=== PATIENT | male | born 1970 | race Caucasian/White ===

== ENCOUNTER 2019-06-23 23:44 | Emergency (ER) | payer OTHER ==
[~2019-06-23] VITALS: Ht 187.9 cm; Wt 81.6 kg
== END 2019-06-24 00:40 | disposition home or self-care (01) ==
LOC: ED 23:44
DX: F19.10 Other psychoactive substance abuse, uncomplicated (principal)

== ENCOUNTER 2019-06-24 11:46 | Inpatient (IN) | payer OTHER ==
[~2019-06-24] VITALS: Ht 187.9 cm; Wt 79.1 kg
[2019-06-24 13:30] VITALS: BP 124/77
[2019-06-24 13:31] LABS: BASO % 0.7 % (0.0-1.0); EOS # 0.2 10*3/uL (0.0-0.4); EOS % 3.3 % (1.0-4.0); HEMATOCRIT 37.4 % (42.0-52.0); HEMOGLOBIN 12.4 g/dl (14.0-18.0); LYMPH # 1.9 10*3/uL (1.3-4.4); LYMPH % 32.3 % (27.0-41.0); MEAN CELL VOLUME 89.7 fl (80.0-94.0); MEAN CORPUSCULAR HGB 29.7 pg (27.0-31.0); MEAN CORPUSCULAR HGB CONC 33.2 g/dl (33.0-37.0); MONO # 0.4 10*3/uL (0.1-1.0); MONO % 7.5 % (3.0-9.0); NEUT # 3.2 10*3/uL (2.3-7.9); PLATELET COUNT AUTOMATED 179 10*3/uL (130-400); RED BLOOD COUNT 4.17 10*6/uL (4.50-5.90); RED CELL DISTRI WIDTH 12.3 % (0-14.5); WHITE BLOOD COUNT 5.8 10*3/uL (4.8-10.8)
[2019-06-24 13:33] LABS: BILIRUBIN NEGATIVE (NEGATIVE); BLOOD NEGATIVE (NEGATIVE); CLARITY CLEAR (CLEAR); COLOR YELLOW (YELLOW); GLUCOSE NEGATIVE (NEGATIVE); KETONE NEGATIVE (NEGATIVE); LEUKO ESTERASE NEGATIVE (NEGATIVE); NITRITE NEGATIVE (NEGATIVE); SPECIFIC GRAVITY >= 1.030 (1.005-1.030); UROBILINOGEN 0.2 E.U./dl (0.2-1.0)
[2019-06-24 13:39] LABS: URINE AMPHETAMINES > 1000 (1000ng/ml); URINE BARBITURATES < 200 (200ng/ml); URINE BENZODIAZEPINES < 200 (200ng/ml); URINE CANNABINOIDS (THC) < 50 (50ng/ml); URINE COCAINE < 300 (300ng/ml); URINE METHADONE < 300 (300ng/ml); URINE OPIATES < 300 (300ng/ml)
[2019-06-24 13:40] LABS: URINE PHENCYCLIDINE < 25 (25ng/ml)
[2019-06-24 13:42] LABS: INTERNATIONAL NORM RATIO 0.9 (2.0-3.5)
[2019-06-24 13:53] LABS: ALBUMIN 3.8 gm/dl (3.1-4.5); ALKALINE PHOSPHATASE 89 U/L (45-117); BUN 16 mg/dl (7-24); CHLORIDE 106 mmol/L (98-107); CREATININE 0.93 mg/dL (0.70-1.30); POTASSIUM 3.9 mmol/L (3.5-5.1); SGOT/AST 14 IU/L (3-35); SGPT/ALT 21 U/L (12-78); SODIUM 142 mmol/L (136-145); TOTAL PROTEIN 6.8 gm/dL (6.4-8.2)
[2019-06-24 13:53] LABS: EPITHELIAL CELLS 0-2
[2019-06-24 13:55] LABS: ETHYL ALCOHOL < 3.0 mg/dl (<3)
[2019-06-24 16:00] VITALS: BP 113/67
[2019-06-25] VITALS: BP 114/68
[2019-06-25 08:00] VITALS: BP 102/54
[2019-06-25 12:00] VITALS: BP 106/66
[2019-06-25 16:00] VITALS: BP 125/80
[2019-06-25 20:00] VITALS: BP 117/70
[2019-06-26] VITALS: BP 120/64
[2019-06-26 08:00] VITALS: BP 106/63
[2019-06-26 16:00] VITALS: BP 120/70
[2019-06-27] VITALS: BP 110/63
[2019-06-27 07:40] LABS: CREATININE 0.87 mg/dL (0.70-1.30)
[2019-06-27 08:00] VITALS: BP 115/75
[2019-06-27 08:27] LABS: BASO % 0.7 % (0.0-1.0); EOS # 0.2 10*3/uL (0.0-0.4); EOS % 4.1 % (1.0-4.0); HEMATOCRIT 40.5 % (42.0-52.0); HEMOGLOBIN 13.4 g/dl (14.0-18.0); LYMPH # 2.5 10*3/uL (1.3-4.4); LYMPH % 41.8 % (27.0-41.0); MEAN CORPUSCULAR HGB 29.8 pg (27.0-31.0); MEAN CORPUSCULAR HGB CONC 33.1 g/dl (33.0-37.0); MEAN PLATELET VOLUME 12.3 fl (9.6-12.3); MONO # 0.6 10*3/uL (0.1-1.0); MONO % 9.4 % (3.0-9.0); NEUT # 2.6 10*3/uL (2.3-7.9); NEUT % 43.8 % (47.0-73.0); PLATELET COUNT AUTOMATED 217 10*3/uL (130-400); RED CELL DISTRI WIDTH 12.3 % (0-14.5); WHITE BLOOD COUNT 5.9 10*3/uL (4.8-10.8)
[2019-06-27] MEDS ORDERED: VITAMIN B-1100 M1 PO (11:16)
[2019-06-27] MEDS ORDERED: METHOCARBAMOL750 M1 PO (11:16)
[2019-06-27] MEDS ORDERED: THERA TABLET400 MCG PO (11:16)
[2019-06-27] MEDS ORDERED: NATURE'S BLEND F1 MG PO (11:16)
[2019-06-27] MEDS ORDERED: DICYCLOMINE HCL20 MG PO (11:16)
[2019-06-27] MEDS ORDERED: ATARAX,VISTARIL50 MG PO (11:16)
[2019-06-27] MEDS ORDERED: ZOFRAN 4 MG ED2 TAB PO (11:16)
== END 2019-06-27 11:50 | disposition home or self-care (01) | DRG 773 ==
LOC: 5E 11:46
PROVIDERS: Internal Medicine; Student in an Organized Health Care Education/Training Program; ADMIT Internal Medicine
DX: F11.23 Opioid dependence with withdrawal (principal); F19.10 Other psychoactive substance abuse, uncomplicated; F15.10 Other stimulant abuse, uncomplicated; G89.29 Other chronic pain; G25.81 Restless legs syndrome; D64.9 Anemia, unspecified; F41.9 Anxiety disorder, unspecified; F17.290 Nicotine dependence, other tobacco product, uncomplicated; Z78.9 Other specified health status; Z80.3 Family history of malignant neoplasm of breast; Z80.42 Family history of malignant neoplasm of prostate; Z71.6 Tobacco abuse counseling; Z79.899 Other long term (current) drug therapy